=== PATIENT | female | born 1980 | race Caucasian/White ===

== ENCOUNTER 2016-12-18 08:23 | Emergency (ER) | payer OTHER ==
[~2016-12-18] VITALS: Ht 160 cm; Wt 116.0 kg
[2016-12-18 08:36] VITALS: BP 126/62; PULSE 88; RESP 16; TEMP 100.1; O2SAT 97
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
[2016-12-18] MEDS ORDERED: SKEL800T21 PO (10:13)
== END 2016-12-18 10:19 | disposition home or self-care (01) ==
LOC: PHED 08:23 → PHEFT 10:19
DX: M54.5 Low back pain (principal); F32.9 Major depressive disorder, single episode, unspecified; V49.40XA Driver injured in collision with unspecified motor vehicles in traffic accident, initial encounter; Y92.410 Unspecified street and highway as the place of occurrence of the external cause
CPT/HCPCS: 72100; 99283